=== PATIENT | female | born 1985 | race American Indian/Alaskan Native ===

== ENCOUNTER 2018-12-01 19:32 | Emergency (ER) | payer SELFPAY ==
[2018-12-01 20:07] VITALS: RESP 18
--- NOTE | 2018-12-01 20:36 | ED PDOC ---
Arrival/HPI - General Chief Complaint: Cough, Cold, Congestion Time Seen by Provider: 12/01/18 19:41 Historian: Patient - History of Present Illness Narrative History of Present Illness (Text): 12/01/18 20:27 A 33 year old female with no significant past medical history, presents to the emergency department with a complaint of 4 day duration SOB, productive cough, and sore throat. Patient reports that she was seen at another institution 2 days ago and diagnosed with bronchitis. Patient denies treatment being given and notes that she does not feel any improvement of her symptoms. She reports that she has been feeling difficulty breathing, feverish, and noticed mild wheezing and body aches. Patient reports that her daughter is sick and was diagnosed with strep throat. Patient denies headache, dizziness, chest pain, dyspnea on exertion, abdominal pain, nausea, vomiting, diarrhea, back pain, neck pain, urinary/bowel changes, or any other complaint. Time/Duration: Other (4 days) Symptom Onset: Sudden Symptom Course: Unchanged Activities at Onset: Rest, Light Context: Home Past Medical History - Provider Review Nursing Documentation Reviewed: Yes - Infectious Disease Hx of Infectious Diseases: None - Cardiac Hx Cardiac Disorders: No - Psychiatric Hx Substance Use: No - Surgical History Hx Section: Yes - Anesthesia Hx Anesthesia: No Family/Social History - Physician Review Nursing Documentation Reviewed: Yes Family/Social History: No Known Family HX Smoking Status: Never Smoked Hx Alcohol Use: No Hx Substance Use: No Allergies/Home Meds Allergies/Adverse Reactions: Allergies No Known Allergies Allergy (Verified 12/01/18 20:09) Review of Systems - Physician Review All systems were reviewed & negative as marked: Yes - Review of Systems Constitutional: Fevers Respiratory: SOB, Cough, Sputum, Wheezing Cardiovascular: absent: Chest Pain, HIRSCH Gastrointestinal: absent: Abdominal Pain, Diarrhea, Nausea, Vomiting Genitourinary Female: absent: Urine Output Changes Musculoskeletal: Myalgias. absent: Back Pain, Neck Pain Neurological: absent: Headache, Dizziness Physical Exam - Physical Exam Narrative Physical Exam (Text): 12/01/18 20:36 Gen: VS reviewed, alert, well developed, well nourished, nontoxic, mild distress. ENT: normal pharynx. Eye: EOMI, PERRL. Neck: no JVD, supple, no adenopathy. CV: regular rate, regular rhythm, no rubs, no murmur, no gallops, S1, S2, pulses equal and strong. Pulm: no distress, clear to auscultation, no wheeze, no rhonchi, breath sounds e qual, no rales. Abd: soft, nontender, no guarding, no rebound, no rigidity, normal bowel sounds. Ext: no edema. Skin: good color, no rash, no cyanosis. Psych: responds appropriately to questions, normal affect. Neuro: oriented x 3, CN2-12 intact grossly, motor intact, sensation intact. Vital Signs Reviewed: Yes Vital Signs Temp Pulse Resp BP Pulse Ox 12/01/18 20:06 99.2 F 72 18 108/73 97 Temperature: Afebrile Blood Pressure: Normal Pulse: Regular Respiratory Rate: Normal Appearance: Positive for: Well-Appearing, Non-Toxic, Comfortable Pain Distress: None Mental Status: Positive for: Alert and Oriented X 3 Medical Decision Making ED Course and Treatment: 12/01/18 20:36 Impression: A 33 year old female presents to the Emergency department with a complaint of 4 day duration SOB, productive cough, and sore throat. Plan: -- Rapid Flu -- Reassess and disposition Prior Visits: Notes and results from previous visits were reviewed. Patient was last seen in the emergency department on Progress Notes: 12/01/18 20:37 - Lab Interpretations I have reviewed the lab results: Yes - Scribe Statement The provider has reviewed the documentation as recorded by the Scribe Gabriela Livingston Provider Scribe Attestation: All medical record entries made by the Scribe were at my direction and personally dictated by me. I have reviewed the chart and agree that the record accurately reflects my personal performance of the history, physical exam, medical decision making, and the department course for this patient. I have also personally directed, reviewed, and agree with the discharge instructions and disposition. Disposition/Present on Arrival - Present on Arrival Any Indicators Present on Arrival: No History of DVT/PE: No History of Uncontrolled Diabetes: No Urinary Catheter: No History of Decub. Ulcer: No History Surgical Site Infection Following: None - Disposition Have Diagnosis and Disposition been Completed?: Yes Diagnosis: Viral upper respiratory illness Disposition: HOME/ ROUTINE Disposition Time: 23:07 Patient Plan: Discharge Patient Problems: Current Active Problems Problem Status Onset Viral upper respiratory illness Acute Condition: STABLE Discharge Instructions (ExitCare): Viral Upper Respiratory Infection, Adult (DC) Additional Instructions: take claritin for the runny nose or any other nondrowsy antihistamine-these medications are over the counter. take sudafed for postnasal drip that makes you cough at night. in general, cough medicine will not help for this kind of cough. Prescriptions: Pseudoephedrine HCl [Sudafed] 30 mg PO QID 5 Days #20 tablet Referrals: PCP,NO [Primary Care Provider] - Follow up with primary Forms: [facility] [employer] [facility] ([place]), WORK NOTE
[2018-12-01 22:57] VITALS: BP 112/73; PULSE 70; TEMP 98.8; O2SAT 99
== END 2018-12-01 23:20 | disposition home or self-care (01) ==
LOC: ED 19:32
DX: J06.9 Acute upper respiratory infection, unspecified (principal)